=== PATIENT | female | born 1990 | race African-American/Black ===

== ENCOUNTER → 2020-10-22 | Outpatient (CLI) | payer OTHER ==
[~2020-10-22] MED LIST: AUGMENTIN 875-1 EACH PO; IBU800 MG PO; METFORMIN HCL500 M3 PO; ONE-DAILY MULT1 EAC1 PO; VITAMIN D21250 MC1 PO; XANAX 0.5 MG0.5 M1 PO
== END ==
LOC: LAB 08:21
PROVIDERS: ATTEND Otolaryngology
DX: Z01.812 Encounter for preprocedural laboratory examination (principal); Z20.828 Contact with and (suspected) exposure to other viral communicable diseases

== ENCOUNTER 2020-10-24 11:11 | Day surgery (SDC) | payer OTHER ==
[~2020-10-24] VITALS: Ht 165.1 cm; Wt 161.5 kg
--- NOTE | ~2020-10-24 | H ---
[facility] [place] [address] HISTORY AND PHYSICAL Name: TONY LLOYD Room #: 150-6 [facility] M.R.#: [id number] Admission: 10/24/20 Attend Phys: Raymond Reyna MD Discharge: Date of : 89 Report #: [id number] THIS REPORT FOR: cc: Kiki Thomas MD, Kimberly J. MD Williams, Carson MD ~ DATE OF SERVICE: 10/24/2020 PREOPERATIVE DIAGNOSES: 1. Obstructive sleep apnea. 2. Severe tonsillar hypertrophy. 3. Adenoid hypertrophy. POSTOPERATIVE DIAGNOSES: 1. Obstructive sleep apnea. 2. Severe tonsillar hypertrophy. 3. Adenoid hypertrophy. PROCEDURE PERFORMED: Tonsillectomy and adenoidectomy over age 14. ANESTHESIA: General. ASSISTANTS: None. SPECIMENS: Bilateral tonsils. COMPLICATIONS: None. PRIMARY SURGEON: Raymond Reyna M.D. INDICATIONS FOR THE PROCEDURE: The patient is a 30-year-old female with a long history of sleep disordered breathing, which contributes also to other medical comorbidities, in addition was known to have airway obstruction with very large palatine tonsils. She was counseled in the outpatient clinic and agreed to the procedure as listed above and signed consent. DESCRIPTION OF PROCEDURE: The patient was identified in the preoperative area before being transported to the operating room and placed supine on the operating table. At this point, general endotracheal anesthesia was induced and a timeout was called to ensure patient identity and procedure to be performed. At this point, the bed was rotated 90 degrees and the patient was prepped and draped in normal fashion. A Renuka-Orlando mouth gag was inserted into the patient's oral cavity and the tongue was suspended from the Vanessa stand. Next, a red rubber catheter was inserted through the right nasal cavity and pulled through the oral cavity and clamped over the Renuka-Orlando to suspend the soft [facility] [address] [place] [address] HISTORY AND PHYSICAL Name: TONY LLOYD Room #: 150-6 [facility]#: [id number] Admission: 10/24/20 Attend Phys: Raymond Reyna MD Discharge: Date of : 89 Report #: [id number] palate. Of note, even with the tongue and soft palate suspended, the tonsils were a very large grade 4 and were completely abutting one another in the back of the oropharynx. Indirect mirror examination of the adenoid bed revealed them to be moderately hypertrophic; therefore, I decided to electrodesiccate these using the suction cautery at a setting of 40 szymanski. Once this was complete, the red rubber catheter was released and the soft palate was released. Attention was then turned to the left palatine tonsil that was grasped with a curved tonsil clamp and medialized using a monopolar Bovie at a setting of 20 szymanski. This was dissected free from the muscular tonsillar fossa in the avascular plane. There were several very large tortuous vessels that were encountered, but however, they were avoided and no significant bleeding was encountered on the patient's left side. The tonsil was passed off for permanent specimen. Attention was then turned to the patient's right side where the same steps were repeated; however, there were several large vessels that were encountered and some moderate bleeding was encountered and had to be controlled. Once this was performed with suction cautery, the remainder of the tonsil was removed in a similar fashion and passed off for permanent specimen. Close inspection of the right tonsillar bed revealed there to be multiple areas with very large tortuous vessels; therefore, I decided to suture ligate these using a 3-0 Vicryl stitch placed in a [id number] fashion. One stitch was placed at the approximate mid tonsillar pole and the other at the superior tonsillar pole. No further bleeding was encountered. At this point, the Renuka-Or[place] mouth gag was released and the tongue was released from suspension for approximately 60 seconds time. Upon resuspension, there was no further bleeding that was encountered and I elected to conclude the procedure at this point. Please note that all instrument, sponge and needle counts were correct x 2. The patient was reversed from anesthesia and safely transported to the PACU in stable condition. DISPOSITION: The patient may be discharged after an extended PACU stay due to the very large tonsils and the patient's increased body habitus. She has been given prescriptions for pain medication and antiemetics. She should take those as directed. I will see her in 2 weeks' time. She should not engage in any strenuous activity or heavy lifting. She should drink copious amounts of water and stay very well hydrated. She may call our office with any concerns. By: [id number] Raymond Reyna MD /rekha
[2020-10-24 11:45] VITALS: BP 131/76
[2020-10-24 14:58] VITALS: BP 131/76
== END 2020-10-24 16:30 | disposition home or self-care (01) ==
LOC: OR 11:11 → TBA 11:12 → OR 13:49
PROVIDERS: ATTEND Otolaryngology
DX: J35.3 Hypertrophy of tonsils with hypertrophy of adenoids (principal); G47.33 Obstructive sleep apnea (adult) (pediatric); F41.9 Anxiety disorder, unspecified; Z98.890 Other specified postprocedural states; Z79.899 Other long term (current) drug therapy
CPT/HCPCS: 50010; 50101; 62110; 62900; 70005